=== PATIENT | female | born 1965 | race Caucasian/White ===

== ENCOUNTER 2018-01-21 08:04 | Outpatient (CLI) ==
--- NOTE | 2018-01-21 09:27 | US ---
Exam: Chung-scale and color Doppler ultrasonographic evaluation of the abdomen. Comparison: None available. Reason for exam: Nausea and vomiting. FINDINGS: The liver measures approximately 11.91 cm in length with a heterogeneous appearing echotex ture. There is normal antegrade portal venous flow without perihepatic free fluid. The gallbladder wall measures 0.22 cm which is within normal limits. There are multiple stones seen within the dependent portion of the gallbladder. The sonographic Moya's test is reportedly negative. The common bile duct measures 0.29 cm which is within normal limits without evidence of intraluminal stone or polyp. The partially imaged pancreas appears grossly unremarkable. The right kidney measures approximately 9.91 x 3.08 x 3.56 cm with normal appearing echotexture, no h ydronephrosis, and no nephrolithiasis. Impression: 1. Cholelithiasis without evidence of cholecystitis. 2. Heterogeneous appearing hepatic echotexture. If clinical concern exists, further evaluation may be performed.
== END 2018-01-21 08:05 | disposition home or self-care (01) ==
LOC: RAD 08:04
PROVIDERS: ATTEND Family Medicine
DX: R11.2 Nausea with vomiting, unspecified (principal)

== ENCOUNTER 2018-07-19 11:07 | Outpatient (CLI) | END 2018-07-19 11:34 | disposition short-term general hospital (02) | LOC: AMBL 11:07 | PROVIDERS: ATTEND Internal Medicine | DX: R19.7 Diarrhea, unspecified (principal); C21.0 Malignant neoplasm of anus, unspecified; R53.1 Weakness ==